=== PATIENT | male | born 1950 | race Caucasian/White ===

== ENCOUNTER 2018-05-14 04:12 | Emergency (ER) | payer BC, MEDICARE ==
[2018-05-14 04:38] LABS: Bilirubin Negative (Negative); Blood, Urine Negative (Negative); Clarity Slightly Cloudy (Clear); Glucose, Urine (Dipstick) Negative (Negative); Leukocyte Negative (Negative); Nitrite Negative (Negative); Protein, Urine (Dipstick) Negative (Neg-Trace); Urobilinogen 0.2 mg/dL (0.2-1.0)
[2018-05-14 05:06] LABS: Eosinophils 4 % (0-10); Hemoglobin 15.2 g/dL (14.0-18.0); Lymphocytes 34 % (21-51); MDiff Complete? YES; Mean Corpuscular HGB CONC 34.1 g/dL (32.0-36.0); Mean Corpuscular Hemoglobin 30.4 pg (27.0-31.0); Mean Corpuscular Volume 89.3 fL (78.0-98.0); Mean Platelet Volume 7.8 fL (7.4-10.4); Monocytes 4 % (0-10); Neutrophil 56 % (42-75); Platelet Count 157 thou/uL (130-400); RBC Distribution Width 11.4 % (11.5-14.5); Reactive Lymphocytes 2 % (0-10); Red Blood Cell (RBC) Count 4.99 mill/uL (4.70-6.10); White Blood Cell (WBC) Count 5.7 thou/uL (4.8-10.8)
[2018-05-14 05:07] LABS: ALT (SGPT) 20 U/L (8-55); AST (SGOT) 22 U/L (5-34); Albumin 4.2 g/dL (3.4-4.8); Alkaline Phosphatase 71 U/L (40-150); Anion Gap 13 mmol/L (10-20); BUN (Urea Nitrogen) 19 mg/dL (8.4-25.7); Bilirubin, Total 1.3 mg/dL (0.2-1.2); Calc. Creatinine Clearance 0 mL/min (70-130); Calcium 9.1 mg/dL (7.8-10.44); Carbon Dioxide 25 mmol/L (23-31); Chloride 107 mmol/L (98-107); Estimated GFR-MDRD 65; Globulin 2.9 g/dL (2.4-3.5); Glucose 101 mg/dL (80-115); Lipase 32 U/L (8-78); Potassium 3.8 mmol/L (3.5-5.1); Protein, Total 7.1 g/dL (5.8-8.1); Sodium 141 mmol/L (136-145)
[2018-05-14 05:49] LABS: Troponin I Less than 0.010 ng/mL (< 0.028)
[2018-05-14 05:51] LABS: CKMB 6.9 ng/mL (0-6.6)
[2018-05-14] MEDS ORDERED: Lidocaine Viscous Sol 2% 15 ml UD Cup ONE (06:39)
[2018-05-14] MEDS ORDERED: Mag-Al Plus 1200 MG/1200 MG/120 MG/30 ML UDCUP ONE (06:39)
--- NOTE | 2018-05-14 08:11 | RAD ---
AP VIEW CHEST: Date: 05/14/18 HISTORY: Chest pain. FINDINGS: Comparison made to previous exam from 09/25/11. AP view of chest demonstrates the lungs to be well aerated. No evidence of active intrathoracic disea se seen. No evidence of effusions, pneumonia, or pneumothorax seen. IMPRESSION: Unremarkable AP view of chest. POS: [facility]
--- NOTE | 2018-05-14 08:18 | CT ---
CT ABDOMEN AND PELVIS WITH IV CONTRAST: Date: 05/14/18 HISTORY: Abdominal pain. FINDINGS: Lung bases are clear. Cysts arise from the cortex of the left kidney. There is calcification within t he arterial structures, including the coronary arteries. Small hiatal hernia. No inflammation or evid ence of bowel obstruction. No free fluid or free air. Urinary bladder is incompletely distended. Mild degenerative changes of lumbar spine. IMPRESSION: Atherosclerosis. Incidental type findings. No active abnormalities are demonstrated to explain abdomi nal pain. Findings called to Dr. Radford in the emergency department at [id number] hours. CODE CR. POS: [facility]
== END 2018-05-14 08:13 | disposition home or self-care (01) ==
LOC: SCSER 04:12
DX: R10.13 Epigastric pain (principal); K21.9 Gastro-esophageal reflux disease without esophagitis; E78.5 Hyperlipidemia, unspecified; I10 Essential (primary) hypertension; I25.2 Old myocardial infarction; Z79.899 Other long term (current) drug therapy; Z79.82 Long term (current) use of aspirin
CPT/HCPCS: 71045; 74177; 80053; 81003; 82553; 83690; 84484; 85025; 87086; 93005